=== PATIENT | female | born 1960 | race Caucasian/White ===

== ENCOUNTER 2020-03-29 10:45 | Emergency (ER) | payer SELFPAY ==
[2020-03-29 11:27] LABS: Urine Blood TRACE (NEG); Urine Glucose 2+ (NEG); Urine Protein 2+ (NEG)
[2020-03-29 11:41] LABS: Urine Bacteria 20-50 /HPF (<20); Urine Culture Reflex Order NOT NEEDED; Urine RBC <5 /HPF (NONE SEEN); Urine Trichomonas PRESENT (NONE SEEN)
[2020-03-29] MEDS ORDERED: metroNIDAZOLE 500 MG TABLET ONE (12:17)
[2020-03-29] MEDS ORDERED: NA CHLORIDE 0.9% 1,000 ML ONE (12:18)
[2020-03-29] MEDS ORDERED: CEFTRIAXONE/SWI 1gm 1 GM/10 ML SYR ONE (12:18)
[2020-03-29 12:23] LABS: Absolute Lymphocytes (CBC) 2.2 K/uL (0.7-4.9); Basophils % 1.1 % (0-1.3); Hematocrit 48.6 % (36.0-45.0); MPV 9.5 fL (7.6-11.3); RBC Red Blood Cell Count 5.38 M/uL (3.86-4.86)
[2020-03-29 12:35] LABS: Potassium 3.5 mmol/L (3.5-5.1)
--- NOTE | 2020-03-29 12:54 | EDPHYS ---
Physician Documentation [facility] Name: Ashly Yarbrough Age: 59 yrs Sex: Female : 1960 Arrival Date: 03/29/2020 Time: 10:46 Bed 6 Private MD: ED Physician Brady Ferrera HPI: 03/29 12:11 This 59 yrs old Female presents to ER via Ambulatory with complaints of snw Urinary Problem, Back Pain. 12:11 The patient presents with flank pain, on the left, vaginal discharge, dysuria. Onset: snw The symptoms/episode began/occurred gradually, 4 day(s) ago. Modifying factors: The symptoms are alleviated by nothing, the symptoms are aggravated by urinating. Associated signs and symptoms: Pertinent positives: dyspareunia, Pertinent negatives: constipation, fever, nausea, vomiting. Severity of symptoms: At their worst the symptoms were moderate, severe. The patient has not experienced similar symptoms in the past. The patient has not recently seen a physician. Historical: - Allergies: 11:14 PENICILLINS; iw - Home Meds: 11:14 None [Active]; iw - PMHx: 11:14 Hypertension; Diabetes - NIDDM; iw - PSHx: 11:14 Hysterectomy; ; iw - Immunization history:: Adult Immunizations not up to date. - Social history:: Smoking status: Patient reports the use of cigarette tobacco products, smokes one pack cigarettes per day. Patient uses. ROS: 12:06 Constitutional: Negative for fever, chills, and weight loss, Eyes: Negative for injury, snw pain, redness, and discharge, ENT: Negative for injury, pain, and discharge, Neck: Negative for injury, pain, and swelling, Cardiovascular: Negative for chest pain, palpitations, and edema, Respiratory: Negative for shortness of breath, cough, wheezing, and pleuritic chest pain, Abdomen/GI: Negative for abdominal pain, nausea, vomiting, diarrhea, and constipation, Back: Negative for injury and pain, MS/Extremity: Negative for injury and deformity, Skin: Negative for injury, rash, and discoloration, Neuro: Negative for headache, weakness, numbness, tingling, and seizure, Psych: Negative for depression, anxiety, suicide ideation, homicidal ideation, and hallucinations. 12:06 : Positive for small amounts, burning with urination, vaginal discharge, white dishcharge. Exam: 12:06 Constitutional: This is a well developed, well nourished patient who is awake, alert, snw and in no acute distress. Head/Face: Normocephalic, atraumatic. Eyes: Pupils equal round and reactive to light, extra-ocular motions intact. Lids and lashes normal. Conjunctiva and sclera are non-icteric and not injected. Cornea within normal limits. Periorbital areas with no swelling, redness, or edema. ENT: Nares patent. No nasal discharge, no septal abnormalities noted. Tympanic membranes are normal and external auditory canals are clear. Oropharynx with no redness, swelling, or masses, exudates, or evidence of obstruction, uvula midline. Mucous membranes moist. Neck: Trachea midline, no thyromegaly or masses palpated, and no cervical lymphadenopathy. Supple, full range of motion without nuchal rigidity, or vertebral point tenderness. No Meningismus. Chest/axilla: Normal chest wall appearance and motion. Nontender with no deformity. No lesions are appreciated. 12:06 Respiratory: Lungs have equal breath sounds bilaterally, clear to auscultation and percussion. No rales, rhonchi or wheezes noted. No increased work of breathing, no retractions or nasal flaring. Abdomen/GI: Soft, non-tender, with normal bowel sounds. No distension or tympany. No guarding or rebound. No evidence of tenderness throughout. Skin: Warm, dry with normal turgor. Normal color with no rashes, no lesions, and no evidence of cellulitis. 12:06 MS/ Extremity: Pulses equal, no cyanosis. Neurovascular intact. Full, normal range of motion. Neuro: Awake and alert, GCS 15, oriented to person, place, time, and situation. Cranial nerves II-XII grossly intact. Motor strength 5/5 in all extremities. Sensory grossly intact. Cerebellar exam normal. Normal gait. Psych: Awake, alert, with orientation to person, place and time. Behavior, mood, and affect are within normal limits. 12:06 Cardiovascular: Rate: tachycardic, Rhythm: regular, Pulses: no pulse deficits are appreciated. 12:06 Back: pain, that is mild, that is moderate, of the left mid back, CVA tenderness, that is mild, is noted on the left. Vital Signs: 11:11 BP 164 / 99; Pulse 116; Resp 18 S; Pulse Ox 99% on R/A; Weight 90.72 kg; Height 5 ft. 5 iw in. (165.10 cm); Pain 5/10; 11:25 Temp 98.2(O); mh5 12:15 BP 156 / 90; Pulse 99; Resp 18; Temp 98.7(O); Pulse Ox 97% on R/A; mh5 13:16 BP 144 / 68; Pulse 96; Resp 17; Pulse Ox 98% ; jl7 11:11 Body Mass Index 33.28 (90.72 kg, 165.10 cm) iw MDM: 11:24 Patient medically screened. snw 12:55 Data reviewed: vital signs, nurses notes. Data interpreted: Pulse oximetry: on room air snw is 97 %. Interpretation: normal. Counseling: I had a detailed discussion with the patient and/or guardian regarding: the historical points, exam findings, and any diagnostic results supporting the discharge/admit diagnosis, lab results, the need for outpatient follow up, for definitive care, to return to the emergency department if symptoms worsen or persist or if there are any questions or concerns that arise at home. 03/29 11:11 Order name: Urine Culture snw 03/29 11:11 Order name: Urine Microscopic Only; Complete Time: 11:47 snw 03/29 11:26 Order name: Urine Dipstick--Ancillary (enter results); Complete Time: 11:31 eb 03/29 11:47 Order name: CBC with Diff; Complete Time: 12:35 snw 03/29 11:47 Order name: Chem 7; Complete Time: 12:35 snw 03/29 11:11 Order name: Urine Dipstick-Ancillary (obtain specimen); Complete Time: 11:27 snw Administered Medications: 12:10 Drug: Flagyl 2 grams Route: PO; 13:22 Follow up: Response: No adverse reaction jl 12:15 Drug: NS 0.9% 1000 ml Route: IV; Rate: 1 bolus; Site: left forearm; jl7 13:15 Follow up: Response: No adverse reaction; IV Status: Completed infusion; IV Intake: jl7 1000ml 12:15 Drug: Rocephin 1 grams Route: IV; Rate: calculated rate; Site: left forearm; jl7 12:18 Follow up: Response: No adverse reaction; IV Status: Completed infusion jl7 Disposition: 14:53 Co-signature as Attending Physician, Brady Ferrera MD. rn Disposition: 03/29/20 12:53 Discharged to Home. Impression: Trichomoniasis, Diabetes mellitus due to underlying condition with hyperglycemia, Urinary tract infection, site not specified. - Condition is Stable. - Discharge Instructions: Back Pain, Adult, Diabetes and Sick Day Management, Dysuria, Hypertension, Trichomoniasis, Urinary Tract Infection, Adult, Blood Glucose Monitoring, Adult, Rehydration, Adult. - Prescriptions for Macrobid 100 mg Oral Capsule - take 1 capsule by ORAL route every 12 hours for 10 days; 20 capsule. Metformin 500 mg Oral Tablet - take 1 tablet by ORAL route once daily for 7 days Then take 1 tablet with morning meals AND evening meals; 21 tablet. - Work release form, Medication Reconciliation Form, Thank You Letter, Antibiotic Education, Prescription Opioid Use form. - Follow up: Emergency Department; When: As needed; Reason: Worsening of condition. Follow up: Private Physician; When: 2 - 3 days; Reason: Recheck today's complaints, Continuance of care, Re-evaluation by your physician. Signatures: Dispatcher [employer] EDIL Kiana Sorensen, SURYA-C SOUND TESTER-Csnw Aan Lilia Vega RN RN iw Nieto, Roman, MD MD rn Leal, Jahala, RN RN jl7 Corrections: (The following items were deleted from the chart) 13:22 12:53 03/29/2020 12:53 Discharged to Home. Impression: Trichomoniasis; Diabetes jl7 mellitus due to underlying condition with hyperglycemia; Urinary tract infection, site not specified. Condition is Stable. Forms are Medication Reconciliation Form, Thank You Letter, Antibiotic Education, Prescription Opioid Use. Follow up: Emergency Department; When: As needed; Reason: Worsening of condition. Follow up: Private Physician; When: 2 - 3 days; Reason: Recheck today's complaints, Continuance of care, Re-evaluation by your physician. snw
--- NOTE | 2020-03-29 12:54 | ER ---
Nurse's Notes [facility] Name: Ashly Yarbrough Age: 59 yrs Sex: Female : 1960 Arrival Date: 03/29/2020 Time: 10:46 Bed 6 Private MD: Diagnosis: Trichomoniasis;Diabetes mellitus due to underlying condition with hyperglycemia;Urinary tract infection, site not specified Presentation: 03/29 11:11 Chief complaint: Patient states: left back pain, burning/stinging with urination X 4 iw days, no fever, no n/v. Coronavirus screen: At this time, the client does not indicate any symptoms associated with coronavirus-19. Ebola Screen: Patient negative for fever greater than or equal to 101.5 degrees Fahrenheit, and additional compatible Ebola Virus Disease symptoms Patient denies exposure to infectious person. Patient denies travel to an Ebola-affected area in the 21 days before illness onset. No symptoms or risks identified at this time. Initial Sepsis Screen: Does the patient meet any 2 criteria? No. Patient's initial sepsis screen is negative. Does the patient have a suspected source of infection? No. Patient's initial sepsis screen is negative. Risk Assessment: Do you want to hurt yourself or someone else? Patient reports no desire to harm self or others. Onset of symptoms was March 25, 2020. 11:11 Method Of Arrival: Ambulatory iw 11:11 Acuity: MERVIN 3 iw Historical: - Allergies: 11:14 PENICILLINS; iw - Home Meds: 11:14 None [Active]; iw - PMHx: 11:14 Hypertension; Diabetes - NIDDM; iw - PSHx: 11:14 Hysterectomy; ; iw - Immunization history:: Adult Immunizations not up to date. - Social history:: Smoking status: Patient reports the use of cigarette tobacco products, smokes one pack cigarettes per day. Patient uses. Screenin:20 Abuse screen: Denies threats or abuse. Denies injuries from another. Nutritional jl7 screening: No deficits noted. Tuberculosis screening: No symptoms or risk factors identified. Fall Risk IV access (20 points). Total [place] Fall Scale indicates No Risk (0-24 pts). Assessment: 11:20 General: Appears in no apparent distress. uncomfortable, Behavior is calm, cooperative, jl7 appropriate for age. Pain: Complains of pain in left mid back Pain radiates to left lower quadrant Pain currently is 5 out of 10 on a pain scale. Pain began x 5 days Is continuous. Neuro: Level of Consciousness is awake, alert, obeys commands, Oriented to person, place, time, situation, Moves all extremities. Full function Gait is steady, Speech is normal. Cardiovascular: Patient's skin is warm and dry. Respiratory: Airway is patent Respiratory effort is even, unlabored, Respiratory pattern is regular, symmetrical. : Reports burning with urination. Derm: Skin is pink, warm \T\ dry. 12:20 Reassessment: Patient appears in no apparent distress at this time. No changes from [facility] previously documented assessment. Patient and/or family updated on plan of care and expected duration. Pain level reassessed. Patient is alert, oriented x 3, equal unlabored respirations, skin warm/dry/pink. 13:15 Reassessment: Pt will be discharged once fluids are done infusing. 7 Vital Signs: 11:11 BP 164 / 99; Pulse 116; Resp 18 S; Pulse Ox 99% on R/A; Weight 90.72 kg; Height 5 ft. 5 iw in. (165.10 cm); Pain 5/10; 11:25 Temp 98.2(O); mh5 12:15 BP 156 / 90; Pulse 99; Resp 18; Temp 98.7(O); Pulse Ox 97% on R/A; mh5 13:16 BP 144 / 68; Pulse 96; Resp 17; Pulse Ox 98% ; jl7 11:11 Body Mass Index 33.28 (90.72 kg, 165.10 cm) ED Course: 10:46 Patient arrived in ED. as 11:11 Kiana Sorensen FNP-C is PHCP. snw 11:11 Brady Ferrera MD is Attending Physician. snw 11:11 Arm band placed on. iw 11:12 Triage completed. iw 11:14 Leora Cárdenas RN is Primary Nurse. jl7 11:26 Patient has correct armband on for positive identification. Bed in low position. Call [facility] light in reach. Pulse ox on. NIBP on. 11:26 Urine Microscopic Only Sent. 5 11:27 Urine Culture Sent. 5 11:27 Urine Dipstick--Ancillary (enter results) Sent. mh5 11:27 Urine collected: clean catch specimen, cloudy. 5 12:14 Chem 7 Sent. 5 12:14 CBC with Diff Sent. [facility] 12:14 Inserted saline lock: 22 gauge in left forearm, using aseptic technique. Blood 5 collected. 12:20 No provider procedures requiring assistance completed. jl7 13:21 IV discontinued, intact, bleeding controlled, No redness/swelling at site. Pressure jl7 dressing applied. Administered Medications: 12:10 Drug: Flagyl 2 grams Route: PO; jl7 13:22 Follow up: Response: No adverse reaction jl7 12:15 Drug: NS 0.9% 1000 ml Route: IV; Rate: 1 bolus; Site: left forearm; jl7 13:15 Follow up: Response: No adverse reaction; IV Status: Completed infusion; IV Intake: jl7 1000ml 12:15 Drug: Rocephin 1 grams Route: IV; Rate: calculated rate; Site: left forearm; jl7 12:18 Follow up: Response: No adverse reaction; IV Status: Completed infusion jl7 Intake: 13:15 IV: 1000ml; Total: 1000ml. 7 Outcome: 12:53 Discharge ordered by MD. crockett 13:21 Discharged to home ambulatory. jl7 13:21 Condition: stable 13:21 Discharge instructions given to patient, Instructed on discharge instructions, follow up and referral plans. medication usage, Demonstrated understanding of instructions, follow-up care, medications, Prescriptions given X 2. 13:22 Patient left the ED. 7 Signatures: Kiana Sorensen, MUSIC EXECUTIVE-C MUSIC EXECUTIVE-Kirsten Jacob Irene, STEVEN HARRIS Carlotta Casarez Leora Leigh RN RN jl7 Corrections: (The following items were deleted from the chart) 12:33 12:18 Response: No adverse reaction; IV Status: Completed infusion; IV Intake: 1000ml [place] [id number] 13:16 12:20 BP 144 / 68; Pulse 96bpm; Resp 17bpm; Pulse Ox 98%; jl7 jl7
[2020-03-29 13:55] VITALS: TEMP 98.7
[2020-03-29 13:57] VITALS: BP 144/68; O2SAT 98
== END 2020-03-29 13:22 | disposition home or self-care (01) ==
LOC: ER 10:45
DX: A59.9 Trichomoniasis, unspecified (principal); N39.0 Urinary tract infection, site not specified; E11.65 Type 2 diabetes mellitus with hyperglycemia; F17.210 Nicotine dependence, cigarettes, uncomplicated; Z88.0 Allergy status to penicillin
CPT/HCPCS: 36415; 80048; 81003; 81015; 85025; 87086; 87088; 96361; 96374; 99284; J0696; J7030

== ENCOUNTER 2020-04-09 09:49 | Emergency (ER) | payer SELFPAY ==
[2020-04-09 11:41] LABS: Urine Bacteria <20 /HPF (<20); Urine Culture Reflex Order NOT NEEDED; Urine RBC NONE SEEN /HPF (NONE SEEN)
[2020-04-09 11:50] LABS: Urine Blood NEGATIVE (NEG); Urine Glucose 2+ (NEG); Urine Protein NEGATIVE (NEG)
--- NOTE | 2020-04-09 12:46 | ER ---
Nurse's Notes [facility] Name: Ashly Yarbrough Age: 59 yrs Sex: Female : 1960 Arrival Date: 04/09/2020 Time: 09:50 Bed 19 Private MD: Diagnosis: Candidiasis of other urogenital sites;Dysuria;Hyperglycemia, unspecified Presentation: 04/09 10:19 Chief complaint: Patient states: was diagnosed with yeast infection and trichomoniasis, iw finished her abx yesterday, still has a very painful rash outside her vagina and still is having back pain and side pain. Coronavirus screen: At this time, the client does not indicate any symptoms associated with coronavirus-19. Ebola Screen: Patient negative for fever greater than or equal to 101.5 degrees Fahrenheit, and additional compatible Ebola Virus Disease symptoms Patient denies exposure to infectious person. Patient denies travel to an Ebola-affected area in the 21 days before illness onset. No symptoms or risks identified at this time. Initial Sepsis Screen: Does the patient meet any 2 criteria? No. Patient's initial sepsis screen is negative. Does the patient have a suspected source of infection? No. Patient's initial sepsis screen is negative. Risk Assessment: Do you want to hurt yourself or someone else? Patient reports no desire to harm self or others. Onset of symptoms was March 29, 2020. 10:19 Method Of Arrival: Ambulatory iw 10:19 Acuity: MERVIN 3 iw Historical: - Allergies: 10:22 PENICILLINS; iw - Home Meds: 10:22 None [Active]; iw - PMHx: 10:22 Diabetes - NIDDM; Hypertension; iw - PSHx: 10:22 Hysterectomy; ; iw - Immunization history:: Adult Immunizations not up to date. - Social history:: Smoking status: Patient reports the use of cigarette tobacco products, smokes one pack cigarettes per day. Screenin:35 Abuse screen: Denies threats or abuse. Denies injuries from another. Nutritional ca1 screening: No deficits noted. Tuberculosis screening: No symptoms or risk factors identified. Fall Risk None identified. Assessment: 10:35 General: Appears in no apparent distress. comfortable, Behavior is calm, cooperative, ca1 appropriate for age. Pain: Complains of pain in groin. Neuro: Level of Consciousness is awake, alert, obeys commands, Oriented to person, place, time, situation. Cardiovascular: Heart tones S1 S2 present Capillary refill < 3 seconds Patient's skin is warm and dry. Respiratory: Airway is patent Respiratory effort is even, unlabored, Respiratory pattern is regular, symmetrical, Breath sounds are clear bilaterally. GI: Abdomen is round non-distended, Bowel sounds present X 4 quads. Abd is soft and non tender X 4 quads. : Reports burning with urination, urgency, urinary frequency. EENT: No signs and/or symptoms were reported regarding the EENT system. Derm: Skin is intact, is healthy with good turgor, Skin is pink, warm \T\ dry. Musculoskeletal: Circulation, motion, and sensation intact. Capillary refill < 3 seconds. 11:19 Reassessment: Patient appears in no apparent distress at this time. Patient and/or ca1 family updated on plan of care and expected duration. Pain level reassessed. Patient is alert, oriented x 3, equal unlabored respirations, skin warm/dry/pink. 12:20 Reassessment: Patient appears in no apparent distress at this time. Patient and/or ca1 family updated on plan of care and expected duration. Pain level reassessed. Patient is alert, oriented x 3, equal unlabored respirations, skin warm/dry/pink. 13:21 Reassessment: Patient appears in no apparent distress at this time. Patient is alert, ca1 oriented x 3, equal unlabored respirations, skin warm/dry/pink. Vital Signs: 10:19 BP 188 / 107; Pulse 100; Resp 16; Pulse Ox 100% on R/A; Weight 90.72 kg; Height 5 ft. 5 iw in. (165.10 cm); Pain 7/10; 11:19 BP 190 / 103; Pulse 90; Resp 15 S; Pulse Ox 97% on R/A; ca1 11:46 BP 189 / 80; Pulse 89; Resp 16 S; Pulse Ox 97% on R/A; ca1 12:35 BP 179 / 95; Pulse 101; Resp 16 S; Pulse Ox 98% on R/A; ca1 13:20 BP 169 / 89; Pulse 94; Resp 16 S; Pulse Ox 98% on R/A; ca1 10:19 Body Mass Index 33.28 (90.72 kg, 165.10 cm) iw ED Course: 09:50 Patient arrived in ED. ag5 10:22 Triage completed. iw 10:22 Arm band placed on. iw 10:23 Lelia Hyman RN is Primary Nurse. ca1 10:23 Georges Bain NP is PHCP. pm1 10:23 Brady Ferrera MD is Attending Physician. pm1 10:35 Patient has correct armband on for positive identification. Placed in gown. Bed in low ca1 position. Call light in reach. Side rails up X 1. Pulse ox on. NIBP on. Warm blanket given. 11:00 No provider procedures requiring assistance completed. Straight cath inserted, using ca1 sterile technique, 18 Fr. Specimen obtained. Returned clear yellow urine. Patient tolerated well. Patient did not have IV access during this emergency room visit. Administered Medications: 12:52 Drug: DiFLUcan 150 mg Route: PO; ca1 Outcome: 12:45 Discharge ordered by . pm1 13:22 Discharged to home ambulatory. ca1 13:22 Condition: stable 13:22 Discharge instructions given to patient, Instructed on discharge instructions, follow up and referral plans. medication usage, Demonstrated understanding of instructions, follow-up care, medications, Prescriptions given X 1. 13:22 Patient left the ED. ca1 Signatures: Ana Lilia Vega RN RN iw Georges Bain NP [employer] pm1 Lelia Hyman RN RN ca1 Francesca Marrero ag5 Corrections: (The following items were deleted from the chart) 10:23 10:19 Pulse 100bpm; Resp 16bpm; Pulse Ox 100% RA; 90.72 kg; Height 5 ft. 5 in.; BMI: iw 33.2; Pain 7/10; iw
--- NOTE | 2020-04-09 12:46 | EDPHYS ---
Physician Documentation [facility] Name: Ashly Yarbrough Age: 59 yrs Sex: Female : 1960 Arrival Date: 04/09/2020 Time: 09:50 Bed 19 Private MD: ED Physician Brady Ferrera HPI: 04/09 10:59 This 59 yrs old Female presents to ER via Ambulatory with complaints of pm1 Vaginal Problem, Urinary Problem. 10:59 The patient presents with burning with urination and pain to area with sitting. pm1 10:59 Onset: The symptoms/episode began/occurred 2 week(s) ago. Modifying factors: The pm1 symptoms are alleviated by nothing, the symptoms are aggravated by urinating, Sitting. Associated signs and symptoms: Pertinent negatives: fever, urinary frequency, vaginal discharge, Vaginal discharge. Severity of symptoms: in the emergency department the symptoms are unchanged. The patient is sexually active, Last time of intercourse 10 months ago. The patient has not recently seen a physician, and does not have an established primary care provider. Patient with 2 weeks of burning with urination. Patient was seen here on 03/29 and was diagnosed with trichomoniasis and UTI. given Flagyl and discharged home with abx and metformin. Patient completed that antibiotics and reports that symptoms are still the same. Does not have any more metformin and has not seen a PCP to refill it. Does not check her glucose levels. Historical: - Allergies: 10:22 PENICILLINS; iw - Home Meds: 10:22 None [Active]; iw - PMHx: 10:22 Diabetes - NIDDM; Hypertension; iw - PSHx: 10:22 Hysterectomy; ; iw - Immunization history:: Adult Immunizations not up to date. - Social history:: Smoking status: Patient reports the use of cigarette tobacco products, smokes one pack cigarettes per day. ROS: 10:59 Positive for burning with urination, Negative for vaginal bleeding, vaginal pm1 discharge, vaginal itching. 10:59 Constitutional: Negative for fever, chills, and weight loss. 10:59 Abdomen/GI: Negative for abdominal pain, nausea, vomiting, diarrhea, and constipation, Back: Negative for injury and pain, MS/Extremity: Negative for injury and deformity, Skin: Negative for injury, rash, and discoloration. 10:59 Neuro: Negative for headache, weakness, numbness, tingling, and seizure. 10:59 All other systems are negative. Exam: 10:59 Constitutional: This is a well developed, well nourished patient who is awake, alert, pm1 and in no acute distress. Head/Face: Normocephalic, atraumatic. 10:59 Skin: Warm, dry with normal turgor. Normal color with no rashes, no lesions, and no evidence of cellulitis. MS/ Extremity: Pulses equal, no cyanosis. Neurovascular intact. Full, normal range of motion. 10:59 Cardiovascular: Exam negative for acute changes, Rate: normal, Rhythm: regular, Pulses: no pulse deficits are appreciated. 10:59 Respiratory: Exam negative for acute changes, respiratory distress, shortness of breath. 10:59 Abdomen/GI: Exam negative for acute changes, Inspection: abdomen appears normal, Palpation: abdomen is soft and non-tender, in all quadrants, mass, is not appreciated, rebound tenderness, is not appreciated. 10:59 Back: Exam negative for pain, is absent, CVA tenderness, is absent, vertebral tenderness, is not appreciated. 10:59 Neuro: Exam negative for acute changes, Orientation: is normal, Mentation: is normal, Motor: is normal, moves all fours, Sensation: is normal, no obvious gross deficits. Vital Signs: 10:19 BP 188 / 107; Pulse 100; Resp 16; Pulse Ox 100% on R/A; Weight 90.72 kg; Height 5 ft. 5 iw in. (165.10 cm); Pain 7/10; 11:19 BP 190 / 103; Pulse 90; Resp 15 S; Pulse Ox 97% on R/A; ca1 11:46 BP 189 / 80; Pulse 89; Resp 16 S; Pulse Ox 97% on R/A; ca1 12:35 BP 179 / 95; Pulse 101; Resp 16 S; Pulse Ox 98% on R/A; ca1 13:20 BP 169 / 89; Pulse 94; Resp 16 S; Pulse Ox 98% on R/A; ca1 10:19 Body Mass Index 33.28 (90.72 kg, 165.10 cm) iw MDM: 10:51 Patient medically screened. pm1 11:12 Data reviewed: vital signs. Data interpreted: Pulse oximetry: on room air is 100 %. pm1 Interpretation: normal. 12:37 Counseling: I had a detailed discussion with the patient and/or guardian regarding: the pm1 historical points, exam findings, and any diagnostic results supporting the discharge/admit diagnosis. 04/09 10:58 Order name: Urine Microscopic Only; Complete Time: 12:03 pm1 04/09 11:10 Order name: Glucose, Ancillary Testing; Complete Time: 11:28 EDMS 04/09 10:58 Order name: Urine Dipstick-Ancillary (obtain specimen); Complete Time: 11:26 pm1 04/09 10:58 Order name: Straight Cath - Urine; Complete Time: 11:26 pm1 04/09 11:43 Order name: Urine Dipstick--Ancillary (enter results); Complete Time: 12:03 bd Administered Medications: 12:52 Drug: DiFLUcan 150 mg Route: PO; ca1 Disposition: 17:52 Co-signature as Attending Physician, Brady Ferrera MD. rn Disposition: 04/09/20 12:45 Discharged to Home. Impression: Candidiasis of other urogenital sites, Dysuria, Hyperglycemia, unspecified. - Condition is Stable. - Discharge Instructions: Dysuria, Hyperglycemia, Vaginal Yeast Infection, Adult, Blood Glucose Monitoring, Adult, Diabetes and Exercise. - Prescriptions for Metformin 500 mg Oral Tablet - take 1 tablet by ORAL route once daily for 7 days Then take 1 tablet with morning meals AND evening meals; 21 tablet. - Medication Reconciliation Form, Thank You Letter, Antibiotic Education, Prescription Opioid Use form. - Follow up: Emergency Department; When: As needed; Reason: Worsening of condition. Follow up: Private Physician; When: 2 - 3 days; Reason: Recheck today's complaints, Continuance of care, Re-evaluation by your physician. - Problem is new. - Symptoms have improved. Signatures: Dispatcher [employer] [facility] Ana Lilia Vega RN RN iw Nieto, Roman, MD MD rn Marinas, Patrick, [employer] pm1 Lelia Hyman RN RN ca1 Corrections: (The following items were deleted from the chart) 12:47 12:45 04/09/2020 12:45 Discharged to Home. Impression: Candidiasis of other urogenital pm1 sites; Dysuria. Condition is Stable. Forms are Medication Reconciliation Form, Thank You Letter, Antibiotic Education, Prescription Opioid Use. Follow up: Emergency Department; When: As needed; Reason: Worsening of condition. Follow up: Private Physician; When: 2 - 3 days; Reason: Recheck today's complaints, Continuance of care, Re-evaluation by your physician. Problem is new. Symptoms have improved. pm1 13:22 12:47 04/09/2020 12:45 Discharged to Home. Impression: Candidiasis of other urogenital ca1 sites; Dysuria; Hyperglycemia, unspecified. Condition is Stable. Discharge Instructions: Dysuria, Vaginal Yeast Infection, Adult. Forms are Medication Reconciliation Form, Thank You Letter, Antibiotic Education, Prescription Opioid Use. Follow up: Emergency Department; When: As needed; Reason: Worsening of condition. Follow up: Private Physician; When: 2 - 3 days; Reason: Recheck today's complaints, Continuance of care, Re-evaluation by your physician. Problem is new. Symptoms have improved. pm1
[2020-04-09] MEDS ORDERED: FLUCONAZOLE 100 MG TAB ONE (13:23)
[2020-04-09 13:31] VITALS: O2SAT 98
[2020-04-09 13:32] VITALS: BP 169/89
== END 2020-04-09 13:22 | disposition home or self-care (01) ==
LOC: ER 09:49
DX: B37.49 Other urogenital candidiasis (principal); E11.65 Type 2 diabetes mellitus with hyperglycemia; F17.210 Nicotine dependence, cigarettes, uncomplicated; I10 Essential (primary) hypertension; Z88.0 Allergy status to penicillin
CPT/HCPCS: 51702; 81003; 81015; 82947; 99284